=== PATIENT | male | born 2005 | race Caucasian/White ===

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

== ENCOUNTER 2025-09-02 16:50 | Emergency (ER) | payer OTHER, SELFPAY ==
[2025-09-02 16:51] VITALS: BP 163/101; PULSE 73; RESP 16; TEMP 36.8; O2SAT 99; BMI 32.3
--- NOTE | 2025-09-02 17:04 | ED.VIS.LOWEX ---
HPI History of Present Illness HPI Narrative: 21-diuw-nzy-year-old male no [facility] past medical history other prior metatarsal fracture of his foot in the past. Today's playing basketball went to stop and felt a pop in his right foot. Denies any ankle or knee pain. Initially thought he sprained it but has had more pain with walking. So he came in to have evaluated. This occurred around 9 AM this morning. He has never had any surgery to his foot. Chief Complaint: Lower Extremity Injury Informant: patient Occured/Mechanism Mechanism/Context: Yes injury and Yes blunt trauma Onset/Context/Timing Onset: Today and Hours Context: Sudden Onset Timing: Continuous Quality of Pain: Sharp Current Severity: Mild Maximum Severity: Moderate Narrative Narrative: 20-year-old male injured his right foot playing basketball today. Has had a prior fourth metatarsal fracture. No prior surgery. Denies any other complaints. Prior similar symptoms: Yes Recent Illness/Hospitalization: No PFSH PFSH Medical History Ankle injuries Home Medications ?Medication ?Instructions ?Recorded ?Last Taken ?Type NK 11/30/17 Unknown History Allergy/AdvReac Type Severity Reaction Status Date / Time No Known Allergies Allergy Verified 09/02/25 16:52 Family History Other Asthma Diabetes Social History Smoking Status: Never smoker alcohol intake: never ROS ROS ED ROS Narrative Denies recent illness. Constitutional Constitutional ED: Denies chills or fever(s) Eyes Eyes: Denies blurry vision ENT ENT ED: Denies ear pain Cardiovascular Cardiovascular: Denies chest pain Respiratory/Chest Respiratory/Chest: Denies cough or dyspnea Gastrointestinal Gastrointestinal: Denies abdominal pain Genitourinary Genitourinary ED: Denies dysuria or hematuria Musculoskeletal Musculoskeletal: Denies arthralgias Integumentary Denies abscess Neurologic Neurologic: Denies headache(s) Psychiatric Psychiatric: Denies anxiety Endocrine Endocrinology: Denies polydipsia Hematologic/Lymphatic Hematologic/Lymphatic: Denies easy bleeding, easy bruising or lymphadenopathy Allergic/Immunologic Allergic/Immunologic ED: Denies mouth swelling, tongue swelling or urticaria EXAM Physical Exam Narrative Exam Narrative: 20-year-old male no acute distress vital signs stable afebrile. Companied by his dad. H EENT exam pupils round react light. Lungs clear to auscultation. Heart regular rhythm no murmur. Abdomen soft nontender. Moving all 4 extremities. Neurovascularly intact. No edema. Right hip, knee and ankle nontender nonswollen normal range of motion. Normal DP pulse. Achilles tendon intact. Right foot no swelling. Able to wiggle his toes. Normal touch sensation and cap refill. Tenderness along the distal end of the fifth or small toe metatarsal. Patient is awake alert. Answering questions following commands. Back nontender. Const Vital Signs: 09/02/25 16:51 Temperature 98.3 F Temperature Source Oral Pulse Rate 73 Respiratory Rate 16 Blood Pressure 163/101 H Blood Pressure Mean 121 Pulse Ox 99 Oxygen Delivery Method Room Air MDM MDM MDM Narrative Medical decision making narrative: 20-year-old male right foot injury playing basketball x-ray being obtained he did not need anything for pain. Repeat exam around 5:27 PM no significant change. We went over his x-rays. Patiently placed in a walking boot. He wanted to follow-up with [facility]. History & Record Review Discussion w/independent historian: Patient and Family Additional record(s) reviewed:: Prior outpatient record, Prior ED visit and Prior labs Radiography Diagnostic Testing: Right foot x-ray, 3 views, interpreted by myself shows fracture of the proximal end of the right small toe or fifth metatarsal. I did go over the x-rays with the patient and his father. Discharge Plan Triage Chief Complaint: Lower Extremity Injury ED Provider: Spike Ivan Dx/Rx/DC Orders Clinical Impression: Closed nondisplaced fracture of fifth right metatarsal bone Instructions: ED Fracture, Foot Prescriptions: No Action NK Primary Care Provider: Benson Estrada Referrals: Darian Jones MD [Med Staff - Active Staff, Orthopedics] - As soon as possible Benson Estrada MD [Primary Care Provider, Family Practice] Robinson Boyer DPM [Med Staff - Active Staff, Podiatry] - As soon as possible Héctor Rogers DO [Med Staff - Active Staff, Orthopedics] - As soon as possible Activity Restrictions/Additional Instructions: You have a break or fracture of the small toe metatarsal on the proximal third. Ice and elevate. Motrin for pain and swelling Tylenol for pain. Either no weightbearing or you can use the walking boot. Do not walk on your bare feet at this time. Call and follow-up either with Dr. Rogers of [facility], Dr. Jones of [facility] or Dr. Boyer of the [facility]. Print Language: Emirati Disposition Disposition: Home, Self Care
--- NOTE | 2025-09-02 17:05 | RAD_ITS ---
PROCEDURE: FOOT MIN 3 VIEWS 09/02/2025 REASON FOR EXAM: FOOT PAIN. INJURED RIGHT FOOT. PRIOR FX TECHNIQUE: Procedure Code: RADFO Modality: DX Procedure: FOOT MIN 3 VIEWS Laterality: Right COMPARISON: 03/08/2019 right foot radiographs FINDINGS: Bones: Nondisplaced fracture involving mid right 5th toe metatarsal. Joints: Normal alignment. Soft tissues: Soft tissues are unremarkable. RAD/Foot min 3 Views IMPRESSION: Nondisplaced fracture involving mid right 5th toe metatarsal. Reading Location: [facility]
--- OUTSIDE RECORDS SUMMARY | 2025-09-02 17:13 | XMS RPT_ITS | CCD ---
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 Name Role Phone Kelly Fuchs Attending Unavail able Benson Estrada Referring Unavailable Benson Estrada Primary Care Unavailable None, None Primary Care Provider Unavailabl e NONE, NONE Primary Care Unavailable MARIA EUGENIA REVELES Attending Unavailable NONE, NONE Primary Care Unavailable NONE, NONE Primary Care Unavailable Medications Completed/Discontinued Medications Medication Drug Class(es) Dates Sig (Normalized) Sig (Original) calcium chloride 0.0014 meq/ml / potassium chloride 0.004 meq/ml / sodium chloride 0.103 meq/ml / sodium lactate 0.028 meq/ml injectable solution (1 source) Start: 06-04-2025 End: 06-04-2025 1,000 mL, IntraVENous, at 495.9 mL/hr, Administer over 121 Minutes, ONCE, On 06/04/25 at 2015, For 1 dose 50 ml magnesium sulfate 40 mg/ml injection (1 source) Start: 06-04-2025 End: 06-04-2025 2,000 mg, IntraVENous, at 50 mL/hr, Administer over 1 Hours, ONCE, On 06/04/25 at 2030, For 1 dose, Recommended infusion rate of 1 gram/hour. Problems Active Problems Problem Classification Problem Date Documented Da te Episodic/Chronic Fluid and electrolyte disorders (4 sources) Dehydration; Translations: [Dehydration] Onset: 06-04-2025 05-14-2021 Episodic Malaise and fatigue (1 source) Other fatigue; Translations: [Other fatigue] Onset: 06-08-2025 Episodic Other injuries and conditions due to external causes (1 source) Heat exhaustion; Translations: [Heat exhaustion, unspecified, initial encounter] 06-04-2025 Episodic Other injuries and conditions due to external causes (1 source) Heat exhaustion, unspecified, initial encounter; Translations: [Heat exhaustion, unspecified, initial encounter] Onset: 06-04-2025 Episodic Superficial injury; contusion (2 sources) Contusion of knee; Translations: [Contusion of unspecified knee, initial encounter] 11-13-2020 Episodic Past or Other Problems Problem Classification Problem Date Documented Da te Episodic/Chronic Other screening for suspected conditions (not mental disorders or infectious disease) (5 sources) Creatinine level - finding; Translations: [Other specified abnormal findings of blood chemistry] Onset: 06-23-2024 05-14-2021 Episodic Results Test Name Value Interpretation Reference Range Facility CBC WITH DIFFERENTIALon ABS BASOPHILS 0.0 thou/mm3 Normal 0.0-0.1 [facility] Comment on above: Performed By: #### C NORMA, FERR #### [facility] [employer] [address] [place] [address] ABS EOSINOPHILS 0.1 thou/mm3 Normal 0.0-0.4 [facility] Comment on above: Performed By: #### C NORMA, FERR #### [facility] [address] [place] [address] ABS IMMATURE GRANS (IG) 0.11 thou/mm3 High 0.00-0.07 [facility] Comment on above: Performed By: #### Charity GREEN, FERR #### [facility] [address] [address] ABS LYMPHOCYTES 2.2 thou/mm3 Normal 1.0-4.8 [facility] Comment on above: Performed By: #### C NORMA, FERR #### [facility] [address] [place] [address] ABS MONOCYTES 0.6 thou/mm3 Normal 0.4-1.3 [facility] Comment on above: Performed By: #### C NORMA, FERR #### [facility] [address] [place] [address] ABS NEUTROPHILS 4.4 thou/mm3 Normal 1.8-7.7 [facility] Comment on above: Performed By: #### C NORMA, FERR #### [facility] [employer] [facility] [address] [place] [address] Basophils/100 WBC (Bld) 0.4 % Normal [facility] Comment on above: Performed By: #### C BCWD, FERR #### [facility] [address] [place] [address] Eosinophils/100 WBC (Bld) 0.7 % Normal [facility] Comment on above: Performed By: #### C BCWD, FERR #### [facility] [address] [place] [address] Erythrocyte distribution width (RBC) [Ratio] 12.3 % Normal 11.5-14.5 [facility] Comment on above: Performed By: #### C BCWD, FERR #### [facility] [address] [place] [address] Hematocrit (Bld) [Volume fraction] 51.3 % Normal 42.0-52.0 [facility] Comment on above: Performed By: #### C BCWD, FERR #### [address] [address] Hemoglobin (Bld) [Mass/Vol] 17.5 g/dL Normal 14.0-18.0 [facility] Comment on above: Performed By: #### C BCWD, FERR #### [address] [address] IMMATURE GRANS (IG) 1.5 % Normal [facility] Comment on above: Performed By: #### C BCWD, FERR #### [address] [address] Lymphocytes/100 WBC (Bld) 29.1 % Normal [facility] Comment on above: Performed By: #### C BCWD, FERR #### [facility] [address] [place] [address] MCH (RBC) [Entitic mass] 30.2 pg Normal 26.0-33.0 [facility] Comment on above: Performed By: #### C BCWD, FERR #### [facility] [address] [place] [address] MCHC (RBC) [Mass/Vol] 34.1 g/dL Normal 32.2-35.5 [facility] Comment on above: Performed By: #### C BCWD, FERR #### [facility] [address] [place] [address] MCV (RBC) [Entitic vol] 88.6 fL Normal 80.0-94.0 [facility] Comment on above: Performed By: #### C BCWD, FERR #### [facility] [address] [place] [address] Monocytes/100 WBC (Bld) 8.2 % Normal [facility] Comment on above: Performed By: #### C BCWD, FERR #### [facility] [address] [place] [address] Neutrophils/100 WBC (Bld) 60.1 % Normal [facility] Comment on above: Performed By: #### C BCWD, FERR #### [address] [address] NRBC 0 /100 wbc Normal [facility] Comment on above: Performed By: #### C BCENRICO, FERR #### [facility] [employer] [address] [address] PLATELET 248 thou/mm3 Normal 130-400 [facility] Comment on above: Performed By: #### C BCWD, FERR #### [address] [address] Platelet mean volume (Bld) [Entitic vol] 11.7 fL Normal 9.4-12.4 [facility] Comment on above: Performed By: #### C BCENRICO, FERR #### [address] [address] RBC 5.79 mill/mm3 Normal 4.70-6.10 [facility] Comment on above: Performed By: #### C BCWD, FERR #### [facility] [address] [place] [address] RDW-SD 39.9 fL Normal 35.0-45.0 [facility] Comment on above: Performed By: #### C BCWD, FERR #### [facility] [address] [place] [address] WBC 7.4 thou/mm3 Normal 4.8-10.8 [facility] Comment on above: Performed By: #### C BCWD, FERR #### [facility] [address] [place] [address] FERRITINon 06-08-2025 Ferritin [Mass/Vol] 297 ng/mL Normal 30-400 [facility] Comment on above: Performed By: #### C BCENRICO, FERR #### [place] [address] ANION GAPon 06-04-2025 Anion gap [Moles/Vol] 14.0 mmol/L Normal 8.0-16.0 [facility] Comment on above: Result Comment: ANIO N GAP = Sodium -(Chloride + CO2) Performed By: #### C BCWD, CK, OSMOL, EGFR1, CMPX, ANION #### [place] [address] Anion Gapon 06-04-2025 Anion gap [Moles/Vol] 14.0 mmol/L 8.0 - 16.0 meq/L [facility] Comment on above: ANION GAP = Sodium - (Chloride + CO2) Performed at [facility] [address] [place] [address] CALCULATED OSMOLALITYon 05-07 Osmolality [Osmolality] 273.2 mosm/kg Low 275.0-300.0 [facility] Comment on above: Performed By: #### C BCWD, CK, OSMOL, EGFR1, CMPX, ANION #### [place] [address] CBC WITH DIFFERENTIALon 05-07 ABS BASOPHILS 0.0 thou/mm3 Normal 0.0-0.1 [facility] Comment on above: Performed By: #### C BCWD, CK, OSMOL, EGFR1, CMPX, ANION #### [facility] [address] [place] [address] ABS EOSINOPHILS 0.0 thou/mm3 Normal 0.0-0.4 [facility] Comment on above: Performed By: #### C BCWD, CK, OSMOL, EGFR1, CMPX, ANION #### [facility] [address] [place] [address] ABS IMMATURE GRANS (IG) 0.21 thou/mm3 High 0.00-0.07 [facility] Comment on above: Performed By: #### C BCWD, CK, OSMOL, EGFR1, CMPX, ANION #### [place] [address] ABS LYMPHOCYTES 1.3 thou/mm3 Normal 1.0-4.8 [facility] Comment on above: Performed By: #### C BCWD, CK, OSMOL, EGFR1, CMPX, ANION #### [place] [address] ABS MONOCYTES 0.8 thou/mm3 Normal 0.4-1.3 [facility] Comment on above: Performed By: #### C BCWD, CK, OSMOL, EGFR1, CMPX, ANION #### [place] [address] ABS NEUTROPHILS 12.7 thou/mm3 High 1.8-7.7 [facility] Comment on above: Performed By: #### C BCWD, CK, OSMOL, EGFR1, CMPX, ANION #### [place] [address] Basophils/100 WBC (Bld) 0.3 % Normal [facility] Comment on above: Performed By: #### C BCWD, CK, OSMOL, EGFR1, CMPX, ANION #### [place] [address] Eosinophils/100 WBC (Bld) 0.1 % Normal [facility] Comment on above: Performed By: #### C BCWD, CK, OSMOL, EGFR1, CMPX, ANION #### [place] [address] Erythrocyte distribution width (RBC) [Ratio] 12.2 % Normal 11.5-14.5 [facility] Comment on above: Performed By: #### C BCWD, CK, OSMOL, EGFR1, CMPX, ANION #### [place] [address] Hematocrit (Bld) [Volume fraction] 50.1 % Normal 42.0-52.0 [facility] Comment on above: Performed By: #### C BCWD, CK, OSMOL, EGFR1, CMPX, ANION #### [address] [address] Hemoglobin (Bld) [Mass/Vol] 17.2 g/dL Normal 14.0-18.0 [facility] Comment on above: Performed By: #### C BCWD, CK, OSMOL, EGFR1, CMPX, ANION #### [address] [address] IMMATURE GRANS (IG) 1.4 % Normal [facility] Comment on above: Performed By: #### C BCWD, CK, OSMOL, EGFR1, CMPX, ANION #### [place] [address] Lymphocytes/100 WBC (Bld) 8.6 % Normal [facility] Comment on above: Performed By: #### C BCWD, CK, OSMOL, EGFR1, CMPX, ANION #### [place] [address] MCH (RBC) [Entitic mass] 30.3 pg Normal 26.0-33.0 [facility] Comment on above: Performed By: #### C BCWD, CK, OSMOL, EGFR1, CMPX, ANION #### [place] [address] MCHC (RBC) [Mass/Vol] 34.3 g/dL Normal 32.2-35.5 [facility] Comment on above: Performed By: #### C BCWD, CK, OSMOL, EGFR1, CMPX, ANION #### [address] [address] MCV (RBC) [Entitic vol] 88.2 fL Normal 80.0-94.0 [facility] Comment on above: Performed By: #### C BCWD, CK, OSMOL, EGFR1, CMPX, ANION #### [place] [address] Monocytes/100 WBC (Bld) 5.1 % Normal [facility] Comment on above: Performed By: #### C BCWD, CK, OSMOL, EGFR1, CMPX, ANION #### [place] [address] Neutrophils/100 WBC (Bld) 84.5 % Normal [facility] Comment on above: Performed By: #### C BCWD, CK, OSMOL, EGFR1, CMPX, ANION #### [place] [address] NRBC 0 /100 wbc Normal [facility] Comment on above: Performed By: #### C BCWD, CK, OSMOL, EGFR1, CMPX, ANION #### [place] [address] PLATELET 228 thou/mm3 Normal 130-400 [facility] Comment on above: Performed By: #### C BCWD, CK, OSMOL, EGFR1, CMPX, ANION #### [place] [address] Platelet mean volume (Bld) [Entitic vol] 10.6 fL Normal 9.4-12.4 [facility] Comment on above: Performed By: #### C BCWD, CK, OSMOL, EGFR1, CMPX, ANION #### [facility] [employer] [place] [address] RBC 5.68 mill/mm3 Normal 4.70-6.10 [facility] Comment on above: Performed By: #### C BCWD, CK, OSMOL, EGFR1, CMPX, ANION #### [place] [address] RDW-SD 39.5 fL Normal 35.0-45.0 [facility] Comment on above: Performed By: #### C BCWD, CK, OSMOL, EGFR1, CMPX, ANION #### [place] [address] WBC 15.0 thou/mm3 High 4.8-10.8 [facility] Comment on above: Performed By: #### C BCWD, CK, OSMOL, EGFR1, CMPX, ANION #### [place] [address] CBC with Auto Differentialon 06-04-2025 Basophils (Bld) [#/Vol] 0.0 10*3/uL [facility] Eosinophils Absolute 0.0 [facility] Erythrocyte distribution width (RBC) [Entitic vol] 39.5 fL 35.0 - 45.0 fL [facility] Immature granulocytes (Bld) [#/Vol] 0.21 10*3/uL High [facility] Immature granulocytes/100 WBC (Bld) 1.4 % [facility] Interpretation and review of laboratory results Abnormal [facility] Lymphocytes Absolute 1.3 [facility] Monocytes Absolute 0.8 [facility] Neutrophils Absolute 12.7 High [facility] Nucleated RBC/100 WBC (Bld) [Ratio] 0 % /100 wbc [facility] Comment on above: Performed at [facility] [address] [place] [address] Platelets (Bld) [#/Vol] 228 10*3/uL [facility] RBC (Bld) [#/Vol] 5.68 10*6/uL [facility] WBC (Bld) [#/Vol] 15.0 10*3/uL High [facility] CKon 06-04-2025 CK [Catalytic activity/Vol] 392 U/L High 39-308 [facility] Comment on above: Performed at [facility] [employer] [facility] [address] [place] [address] Performed By: #### C BCWD, CK, OSMOL, EGFR1, CMPX, ANION #### [facility] [address] [place] [address] CK [Catalytic activity/Vol]o n 06-04-2025 Interpretation and review of laboratory results Abnormal [facility] COMP. METABOLIC PANELon 05-07 Chloride [Moles/Vol] 97 mmol/L Low 98-111 [facility] Comment on above: Performed By: #### C BCWD, CK, OSMOL, EGFR1, CMPX, ANION #### [facility] [address] [place] [address] Sodium [Moles/Vol] 134 mmol/L Low 135-145 [facility] Comment on above: Performed By: #### C BCWD, CK, OSMOL, EGFR1, CMPX, ANION #### [facility] [address] [address] Calcium [Mass/Vol] 10.1 mg/dL Normal 8.5-10.5 [facility] Comment on above: Performed By: #### C BCWD, CK, OSMOL, EGFR1, CMPX, ANION #### [address] [address] CO2 [Moles/Vol] 23 mmol/L Normal 22-29 [facility] Comment on above: Performed By: #### C BCWD, CK, OSMOL, EGFR1, CMPX, ANION #### [address] [address] Creatinine [Mass/Vol] 1.5 mg/dL High 0.7-1.2 [facility] Comment on above: Performed By: #### C BCWD, CK, OSMOL, EGFR1, CMPX, ANION #### [address] [address] Glucose [Mass/Vol] 121 mg/dL High 74-109 [facility] Comment on above: Performed By: #### C BCWD, CK, OSMOL, EGFR1, CMPX, ANION #### [address] [address] Protein [Mass/Vol] 7.2 g/dL Normal 6.4-8.3 [facility] Comment on above: Performed By: #### C BCWD, CK, OSMOL, EGFR1, CMPX, ANION #### [address] [address] Urea nitrogen [Mass/Vol] 23 mg/dL Normal 8-23 [facility] Comment on above: Performed By: #### C BCWD, CK, OSMOL, EGFR1, CMPX, ANION #### [address] [address] Albumin [Mass/Vol] 4.8 g/dL Normal 3.4-4.9 [facility] Comment on above: Performed By: #### C BCWD, CK, OSMOL, EGFR1, CMPX, ANION #### [address] [address] ALP [Catalytic activity/Vol] 94 U/L Normal 40-129 [facility] Comment on above: Performed By: #### C BCWD, CK, OSMOL, EGFR1, CMPX, ANION #### [address] [address] ALT [Catalytic activity/Vol] 59 U/L High 10-50 [facility] Comment on above: Performed By: #### C BCWD, CK, OSMOL, EGFR1, CMPX, ANION #### [address] [address] AST [Catalytic activity/Vol] 39 U/L Normal 10-50 [facility] Comment on above: Performed By: #### C BCWD, CK, OSMOL, EGFR1, CMPX, ANION #### [address] [address] Bilirubin [Mass/Vol] 1.0 mg/dL Normal 0.3-1.2 [facility] Comment on above: Performed By: #### C BCWD, CK, OSMOL, EGFR1, CMPX, ANION #### [address] [address] POTASSIUM WITH REFLEX MG 4.2 meq/L Normal 3.5-5.2 [facility] Comment on above: Result Comment: Low level specimen hemolysis is present as indicated by the interference index on the Elsy analyzer. ??The reported K+ level may be falsely increased. If clinically warranted, recollection of the specimen is suggested. Performed By: #### C BCWD, CK, OSMOL, EGFR1, CMPX, ANION #### [address] [address] Comprehensive metabolic 2000 panelon 06-04-2025 Albumin BCG dye [Mass/Vol] 4.8 g/dL 3.4 - 4.9 g/dL [facility] ALP [Catalytic activity/Vol] 94 U/L 40 - 129 U/L [facility] ALT No additional P-5'-P [Catalytic activity/Vol] 59 U/L High 10 - 50 U/L [facility] Comment on above: Performed at [facility] [address] [place] [address] AST [Catalytic activity/Vol] 39 U/L 10 - 50 U/L [facility] Bilirubin [Mass/Vol] 1.0 mg/dL 0.3 - 1 .2 mg/dL [facility] Calcium [Mass/Vol] 10.1 mg/dL 8.5 - 10. 5 mg/dL [facility] CO2 [Moles/Vol] 23 mmol/L 22 - 29 meq/L [facility] Creatinine [Mass/Vol] 1.5 mg/dL High 0.7 - 1.2 mg/dL [facility] Glucose [Mass/Vol] 121 mg/dL High 74 - 109 mg/dL [facility] Potassium [Moles/Vol] 4.2 mmol/L 3.5 - 5.2 meq/L [facility] Comment on above: Low level specimen h emolysis is present as indicated by the interference index on the Elsy analyzer. The reported K+ level may be falsely increased. If clinically warranted, recollection of the specimen is suggested. Protein [Mass/Vol] 7.2 g/dL 6.4 - 8.3 g/dL [facility] Urea nitrogen [Mass/Vol] 23 mg/dL 8 - 23 mg/dL [facility] EKG 12-LEADon 06-04-2025 EKG 12-LEAD 83 83 174 86 344 404 44 58 48 Normal sinus rhythm Normal ECG No previous ECGs available Confirmed by DAMIAN SMITH MD ([id number]) on 06/04/2025 9:01:04 PM [email or web address]&Date= 04-06-2025&Time=19%3a15 %3a22%3a00&TestType=ECG &Site=3&OutputType=PDF& Ext=PDF Normal [facility] EKG EmergencyOrdered By: Martin Smith on 06-04-2025 Atrial Rate 83 BPM [facility] Work Phone: P [place] 44 degrees [facility] Work Phone: P-R Interval 174 ms [employer] Work Phone: Q-T Interval 344 ms [employer] Work Phone: QRS Duration 86 ms [employer] Work Phone: QTc Calculation (Bazett) 404 ms [employer] Work Phone: R [place] 58 degrees [employer] Work Phone: T [place] 48 degrees [employer] Work Phone: Ventricular Rate 83 BPM Richard [employer] Work Phone: [employer] Work Phone: EKG Emergencyon 06-04-2025 Normal sinus rhythm Normal ECG No previous ECGs available Confirmed by DAMIAN SMITH MD ([id number]) on 06/04/2025 9:01:04 PM WCCT STR MUSE Damian Smith MD - 06/04/2025 Normal sinus rhythm Normal ECG No previous ECGs available Confirmed by DAMIAN SMITH MD ([id number]) on 06/04/2025 9:01:04 PM [employer] GFR, ESTIMATEDon 06-04-2025 GFR/1.73 sq M.predicted MDRD (S/P/Bld) [Vol rate/Area] 67 mL/min/{1.73_m2} Normal >60 [employer] Comment on above: Pediatric calculator link [email or web address]://www.kidney.org/professionals/kdoqi/gfr_calculatorped Effective Jul 07, 2022 These results are not intended for use in patients <18 years of age. eGFR results are calculated without a race factor using the 2020 CKD-EPI equation. Careful clinical correlation is recommended, particularly when comparing to results calculated using previous equations. The CKD-EPI equation is less accurate in patients with extremes of muscle mass, extra-renal metabolism of creatinine, excessive creatine ingestion, or following therapy that affects renal tubular secretion. Performed at [facility] [address] [place] [address] Result Comment: Pedi atric calculator link [email or web address]://www.kidney.org/professionals/kdoqi/gfr_calculatorped Effective Jul 07, 2022 These results are not intended for use in patients <18 years of age. eGFR results are calculated without a race factor using the 2020 CKD-EPI equation. Careful clinical correlation is recommended, particularly when comparing to results calculated using previous equations. The CKD-EPI equation is less accurate in patients with extremes of muscle mass, extra-renal metabolism of creatinine, excessive creatine ingestion, or following therapy that affects renal tubular secretion. Performed By: #### C BCWD, CK, OSMOL, EGFR1, CMPX, ANION #### [facility] [employer] [address] [place] [address] No Panel Informationon 06-04 Interpretation and review of laboratory results Abnormal [facility] Osmolalityon 06-04-2025 Osmolality Calc [Osmolality] 273.2 Low [facility] Comment on above: Performed at [facility] [address] [place] [address] FERRITINon 06-21-2024 Ferritin [Mass/Vol] 517 ng/mL High 22-322 [facility] Comment on above: Performed By: #### C BCWD, CK, OSMOL, EGFR1, CMPX, ANION #### [place] [address] IRON AND TIBCon 06-21-2024 Iron [Mass/Vol] 92 ug/dL Normal 65-195 [facility] Comment on above: Performed By: #### T RIK NEWSOME FEIBC #### [place] [address] IRON BINDING CAPACITY 206 ug/dL Normal 171-450 [facility] Comment on above: Performed By: #### T RIK NEWSOME FEIBC #### [place] [id number] TSH W/ REFLEX FT4on 06-21-20 24 TSH THIRD GENERATION 2.420 uIU/mL Normal 0.400-4.200 [facility] Comment on above: Performed By: #### C BCWD, CK, OSMOL, EGFR1, CMPX, ANION #### [facility] [address] [place] [address] Office Visit Reporton 2023 Office Visit Report [facility] [address] [place] [address] OFFICE VISIT Date of Service: 02/20/24 MR#: [id number] Acct: [id number] Patient: MICHEL GUERRIER Rep #: [id number] 22 : 2005 Provider: BONIFACIO Valdez Age/Sex: 19/M Location: [facility] Status: Signed Intake Vital Signs 05/14/21 19:17 Height 6 ft 2 in Intake Visit Reasons: PE NON DOT DRUG SCREEN/ GENRAL RENT-ALL Allergies No Known Allergies Allergy (Verified 05/14/21 19:17) Office Procedures [facility] Billing Sheet Testing Breath Alcohol Test in ED (oncology rn fee charged): No Breath Alcohol in [facility]: No Breath Alcohol Test Pre-Employment: No Chest X-Ray (interpreted by radiologist): No DOT Drug Screen: No DOT Physical Exam: No DOT Pre-Employment Breath Alcohol: No DOT Pre-Employment Drug Screen: No DOT Reasonable Suspicion: No Drug Screen Collection Only: No Drug Test Performed by another entity: No ECG: No ED environmental auditor Fee: No Employer Ordered Physical: No Flu Test: No Functional Capacity Evaluation: No Glucose (Finger): No Hair Collection Drug Screen: No Hair Collection Only: No Hair Testing Extended (Opiates): No HCG: No Hearing (Audiogram) Test: No Non-DOT Breath Alcohol Test in ED: No Non-DOT Random Drug Screen: No Non-DOT Reasonable Suspicion: No On Site Service Call (min of 1 hr plus cost of drug screen): No Other DOT Drug Screen: No Other Non-DOT Drug Screen: No Post-Accident DOT Drug Screen (in ED oncology rn fee charged): No Post-Accident DOT Drug Screen in [facility]: No Post-Accident Non-DOT Breath Alcohol Test: No Post-Accident NON-DOT Drug Screen (oncology rn fee charged in ED): No Post-Accident NON-DOT Drug Screen in ED (oncology rn fee charged): No Post-Accident NON-DOT Drug Screen in [facility]: No Pre-Employment Drug Screen [facility]: No Pre-Employment Drug Screen: Yes Pre-Employment PE: No [employer] DOT (yearly plus drug testing fee): No [employer] [facility] Non-DOT (yearly plus drug testing fee): No Respirator Clearance (form only): No Respirator Fit Testing: No RSV/Flu Linda: No Saliva Drug Screen: No Second Drug Screen: No Strep Linda: No TB Test: No Tdap (over age 7): No Titmus Screening: No Vision Test: No Stress Test (conducted interpreted by a tool repairer): No Occquant-Quantiferon: No 05/25/24 1604 A> Date Kelly Kathleen Signature: Date (if applicable) CC: Normal [facility] Hemoglobin S Solubility test Ql (Bld)Ordered By: Bay Estrada on 05-05-2023 Hemoglobin S Ql (Bld) Negative Negative [facility] Comment on above: Since a variety of c onditions and other abnormalhemoglobins in addition to Hemoglobin S may give false-positive results, positive Hemoglobin Solubility testsshould be confirmed by hemoglobin fractionation testing.Performed at: [address] [id number] Director: Alec Sanchez PhD, Phone: [phone] Vital Signs Date Time Vital Sign Value Performing Clinician Noy fonseca 06-04-2025 22:00-0400 Diastolic blood pressure 76 mm[Hg] Maria Eugenia Reveles DO Work Phone: [facility] [employer] 06-04-2025 22:00-0400 Heart rate 71 /min Maria Eugenia Reveles DO Work Phone: [facility] [employer] 06-04-2025 22:00-0400 Respiratory rate 10 /min Maria Eugenia Reveles DO Work Phone: [facility] 06-04-2025 22:00-0400 SaO2% (BldA) [Mass fraction] 99 % Maria Eugenia Reveles DO Work Phone: [employer] 06-04-2025 22:00-0400 Systolic blood pressure 145 mm[Hg] Maria Eugenia Reveles DO Work Phone: [employer] 06-04-2025 19:56-0400 Body temperature 98.49 [degF] Maria Eugenia Reveles DO Work Phone: [employer] 06-04-2025 19:13-0400 Body height 188 cm Maria Eugenia Reveles DO Work Phone: [facility] [employer] 06-04-2025 19:13-0400 Body mass index (BMI) [Ratio] 36.59 kg/m2 Maria Eugenia Reveles DO Work Phone: [employer] 06-04-2025 19:13-0400 Body weight 129.28 kg Maria Eugenia Reveles DO Work Phone: [facility] [employer] Encounters Encounter Date Encounter Type Care Provider Facility Start: 06-08-2025 End: 06-08-2025 ambulatory NONE NONE [facility] Start: 06-04-2025 End: 06-04-2025 Emergency department patient visit Maria Eugenia Reveles DO Work Phone: [facility] Comment on above: Heat exhaustion, ini tial encounter (Primary Dx); Dehydration; Elevated serum creatinine Start: 06-21-2024 End: 06-21-2024 ambulatory NONE NONE [facility] Start: 02-20-2024 End: 02-20-2024 ambulatory Kelly VALDOVINOS Facility[facility] Start: 05-05-2023 End: 05-05-2023 ambulatory [facility] Work Phone: Start: 05-05-2023 End: 05-05-2023 Patient encounter procedure [facility] Work Phone: Start: 06-28-2022 End: 06-28-2022 ambulatory [facility] Work Phone: Start: 06-28-2022 End: 06-28-2022 Patient encounter procedure [facility] [place] Procedures Date Procedure Procedure Detail Performing Clinician Start: 06-04-2025 Anion gap [Moles/Vol] J tina Richey MD Work Phone: Start: 06-04-2025 Creatine kinase total J tina Richey MD Work Phone: Start: 06-04-2025 GLOMERULAR FILTRATIO N RATE, ESTIMATED Sreedhar Richey MD Work Phone: Start: 06-04-2025 Ecg routine ecg w/le ast 12 lds w/i&r Maria Eugenia Reveles DO Work Phone: Start: 06-28-2022 MRI of joint of lowe r extremity Plan of Treatment Date Care Activity Detail Author Start: 05-11-2027 DTaP/Tdap/Td vaccine (7 - Td or Tdap) DTaP/Tdap/Td vaccine (7 - Td or Tdap) [facility] Start: 05-05-2025 Influenza vaccination Flu vaccine (#1) [facility] Start: 06-05-2024 COVID-19 Vaccine ( season) COVID-19 Vaccine ( season) [facility] Start: 2022 Hepatitis C screening Hepatitis C screen [facility] Start: 2020 Meningococcal B vaccine (1 of 2 - Standard) Meningococcal B vaccine (1 of 2 - Standard) [facility] Start: 2019 HIV screening HIV screen [facility] Start: 2019 HPV vaccine (1 - Male 3-dose series) HPV vaccine (1 - Male 3-dose series) [facility] Start: 2017 Varicella vaccine (1 of 2 - 13+ 2-dose series) Varicella vaccine (1 of 2 - 13+ 2-dose series) [facility] Start: 2016 Depression Screen Depression Screen [facility] Payers Date Payer Category Payer Unknown [id number] 2024 Unknown [id number] 2024 Self-pay [id number] 2004 Unknown [id number] [id number] 2004 Unknown [id number] Unknown [employer]/[facility] [place] [id number] Unknown [employer] 0 [id number] Unknown [facility] [place] PACKAGE PLAN . [id number] Unknown [id number] Social History Date Type Detail Facility [facility]: [facility] Start: 11-12-2020 None [facility] Start: 11-12-2020 With Family [facility] Start: 2004 Sex Assigned At Male [facility] Start: 06-04-2025 Tobacco smoking stat [facility] Never smoked tobacco [facility] Start: 06-04-2025 Tobacco use and exposure Smokeless tobacco non-user [facility] Start: 06-04-2025 Alcoholic beverage intake Ex-drinker (finding) [facility] Start: 06-04-2025 History of Social function [facility] Start: 06-04-2025 Tobacco use panel [facility] Start: 06-17-2024 Sex Male (finding) [facility] Start: 06-21-2024 Gender identity Identifies as male gender (finding) [facility] Hospital Discharge instructions 06-04-2025 Discharge InstructionsAttachments Note Date & Type Note Facility 06-04-2025 Hospital Discharg e instructions Maria Eugenia Reveles DO - 06/04/2025 9:39 PM EDT Follow-up with Dr. Saunders at [facility] for clearance to return to sports and repeat blood work. You will need your BUN and creatinine rechecked as these were elevated likely from dehydration on today's labs. Drink plenty of fluids. Drink 6-8--- 20 ounce bottles of water a day. While exercising drink an additional bottle of sports drink. Drink plenty of water before, during, and after you are active. This is very important when it is hot out and when you do intense exercise. The following attachments cannot be sent through Care Everywhere.Oral Rehydration (Ku[place]i)Heat Exhaustion ([place]i)documented in this encounter [facility] Evaluation note Note Date & Type Note Facility Evaluation note No assessment information availa [facility] Work Phone: Evaluation note Note Date & Type Note Facility Evaluation note Diagnosis Heat exhaustion, initial encounter- Primary Dehydration Elevated serum creatinine Other nonspecific findings on examination of blood documented in this encounter [facility] Chief Complaint and Reason for Visit Chief Complaint KNEE PAIN PROBABLE T ORN MCL Chief Complaint EORDER Summary Purpose Family History No Family History Records Found Advance Directives No Advanced Directives Records FoundNo Advanced Directives Records Found Additional Source Comments Goals (unrecognized section and content) Goals may be documented in a n alternate sectionGoals may be documented in an alternate section Care Teams (unrecognized sec tion and content) Team Status: Active Member Role Status Dates Dr. Bay Estrada MD Family Provider Active Dr. Bay Estrada MD Primary Care Provider Activ e Team Status: Inactive Member Role Status Dates Dr. 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 Start Date End Date None, None PCP - General 06/21/24 (unrecognized sect ion and content) No Status Records FoundNo Status Records Found INFORMATION SOURCE (unrecogn ized section and content) DATE CREATED AUTHOR 05/27/2024 [facility] DATE CREATED AUTHOR AUTHOR'S ORGANIZ ATION 06/10/2025 [facility] Reason for Visit (unrecogniz ed section and content) Reason Comments Heat Exposure Cramps Scheduled Active and Recently Administ ered Medications (unrecognized section and content) Medication Order 06/02/2025 06/03/2025 06/04/2025 lactated ringers bolus 1,000 mL (COMPLETED) 1,000 mL, IntraVENous, at 495.9 mL/hr, Administer over 121 Minutes, ONCE, On 06/04/25 at 2015, For 1 dose 1954 (New Bag - Prov ider: Easton Jacobsen RN)2221 (Stopped - Provider: Easton Jacobsen RN) magnesium sulfate 2000 mg in 50 mL IVPB premix (COMPLETED) 2,000 mg, IntraVENous, at 50 mL/hr, Administer over 1 Hours, ONCE, On 06/04/25 at 2029, For 1 dose, Recommended infusion rate of 1 gram/hour. 2036 (New Bag - Prov ider: Easton Jacobsen RN)2221 (Stopped - Provider: Easton Jacobsen RN) FOR RECORDS PERTAINING TO PATIENTS WHO ARE OR HAVE BEEN ENROLLED IN A CHEMICAL DEPENDENCY/SUBSTANCEABUSE PROGRAM, SOME INFORMATION MAY BE OMITTED. This clinical summary was aggregated from multiple sources. Caution should be exercised in using it in the provision of clinical care. This summary normalizes information from multiple sources, and as a consequence, information in this document may materially change the coding, format and clinical context of patient data. In addition, data may be omitted in some cases. CLINICAL DECISIONS SHOULD BE BASED ON THE PRIMARY CLINICAL RECORDS. [facility]. provides no warranty or guarantee of the accuracy or completeness of information in this document.
[2025-09-02 17:38] VITALS: BP 142/80; PULSE 93; RESP 16; TEMP 36.6; O2SAT 99
[2025-09-02 17:40] VITALS: BP 142/80; PULSE 93; RESP 16; TEMP 36.6; O2SAT 99
== END 2025-09-02 17:41 | disposition home or self-care (01) ==
PROVIDERS: Emergency Provider Emergency Medicine; PCP Family Medicine; Visit Provider Emergency Medicine
DX: S92.354A Nondisplaced fracture of fifth metatarsal bone, right foot, initial encounter for closed fracture (principal); Y93.67 Activity, basketball
CPT/HCPCS: 73630; 99283

== ENCOUNTER 2025-09-26 07:24 | Day surgery (SDC) | payer OTHER, SELFPAY ==
[2025-09-26] VITALS (10 sets, daily range): BP systolic 128–154; BP diastolic 61–90; PULSE 64–81; RESP 14–18; TEMP 36.1–36.7; O2SAT 98–100; BMI 35.5
--- OUTSIDE RECORDS SUMMARY | 2025-09-26 07:29 | XMS RPT_ITS | CCD ---
Author Organization [facility] Care Team Providers Care Angle Furnaceman Name Role Phone Kelly Fuchs Attending Unavail [...] DIFFERENTIALon ABS BASOPHILS 0.0 thou/mm3 Normal 0.0-0.1 [facility] Comment on above: Performed By: #### C NORMA, FERR #### [facility] [employer] [address] [place] [address] ABS EOSINOPHILS 0.1 thou/mm3 Normal 0.0-0.4 [facility] Comment on above: Performed By: #### C NORMA, FERR #### [facility] [employer] [address] [place] [address] ABS IMMATURE GRANS (IG) 0.11 thou/mm3 High 0.00-0.07 [facility] Comment on above: Performed By: #### Charity GREEN, FERR #### [facility] [employer] [address] [address] ABS LYMPHOCYTES 2.2 thou/mm3 Normal 1.0-4.8 [facility] Comment on above: Performed By: #### C NORMA, FERR #### [employer] [facility] [address] [place] [address] ABS MONOCYTES 0.6 thou/mm3 Normal 0.4-1.3 [facility] Comment on above: Performed By: #### C NORMA, FERR #### [employer] [facility] [address] [place] [address] ABS NEUTROPHILS 4.4 thou/mm3 Normal 1.8-7.7 [facility] Comment on above: Performed By: #### C NORMA, FERR #### [facility] [employer] [facility] [address] [place] [address] Basophils/100 WBC (Bld) 0.4 % Normal [facility] Comment on above: Performed By: #### C BCWD, FERR #### [facility] [address] [place] [address] Eosinophils/100 WBC (Bld) 0.7 % Normal [facility] Comment on above: Performed By: #### C BCWD, FERR #### [facility] [address] [place] [address] Erythrocyte distribution width (RBC) [Ratio] 12.3 % Normal 11.5-14.5 [facility] Comment on above: Performed By: #### C BCWD, FERR #### [facility] [address] [place] [address] Hematocrit (Bld) [Volume fraction] 51.3 % Normal 42.0-52.0 [facility] Comment on above: Performed By: #### C BCWD, FERR #### [address] [address] Hemoglobin (Bld) [Mass/Vol] 17.5 g/dL Normal 14.0-18.0 [facility] Comment on above: Performed By: #### C BCWD, FERR #### [address] [address] IMMATURE GRANS (IG) 1.5 % Normal [facility] Comment on above: Performed By: #### C BCWD, FERR #### [address] [address] Lymphocytes/100 WBC (Bld) 29.1 % Normal [facility] Comment on above: Performed By: #### C BCWD, FERR #### [facility] [address] [place] [address] MCH (RBC) [Entitic mass] 30.2 pg Normal 26.0-33.0 [facility] Comment on above: Performed By: #### C BCWD, FERR #### [facility] [address] [place] [address] MCHC (RBC) [Mass/Vol] 34.1 g/dL Normal 32.2-35.5 [facility] Comment on above: Performed By: #### C BCWD, FERR #### [facility] [address] [place] [address] MCV (RBC) [Entitic vol] 88.6 fL Normal 80.0-94.0 [facility] Comment on above: Performed By: #### C BCWD, FERR #### [facility] [address] [place] [address] Monocytes/100 WBC (Bld) 8.2 % Normal [facility] Comment on above: Performed By: #### C BCWD, FERR #### [facility] [address] [place] [address] Neutrophils/100 WBC (Bld) 60.1 % Normal [facility] Comment on above: Performed By: #### C BCWD, FERR #### [address] [address] NRBC 0 /100 wbc Normal [facility] Comment on above: Performed By: #### C BCENRICO, FERR #### [facility] [employer] [address] [address] PLATELET 248 thou/mm3 Normal 130-400 [facility] Comment on above: Performed By: #### C BCWD, FERR #### [address] [address] Platelet mean volume (Bld) [Entitic vol] 11.7 fL Normal 9.4-12.4 [facility] Comment on above: Performed By: #### C BCENRICO, FERR #### [address] [address] RBC 5.79 mill/mm3 Normal 4.70-6.10 [facility] Comment on above: Performed By: #### C BCWD, FERR #### [facility] [address] [place] [address] RDW-SD 39.9 fL Normal 35.0-45.0 [facility] Comment on above: Performed By: #### C BCWD, FERR #### [facility] [address] [place] [address]25 WBC 7.4 thou/mm3 Normal 4.8-10.8 [facility] Comment on above: Performed By: #### C BCWD, FERR #### [facility] [address] [place] [address] FERRITINon 06-08-2025 Ferritin [Mass/Vol] 297 ng/mL Normal 30-400 [facility] Comment on above: Performed By: #### C BCENRICO, FERR #### [place] [address] ANION GAPon 06-04-2025 Anion gap [Moles/Vol] 14.0 mmol/L Normal 8.0-16.0 [facility] Comment on above: Result Comment: ANIO N GAP = Sodium -(Chloride + CO2) Performed By: #### C BCWD, CK, OSMOL, EGFR1, CMPX, ANION #### [place] [address] Anion Gapon 06-04-2025 Anion gap [Moles/Vol] 14.0 mmol/L 8.0 - 16.0 meq/L [facility] Comment on above: ANION GAP = Sodium - (Chloride + CO2) Performed at [facility] [address] [place] [address] CALCULATED OSMOLALITYon 05-07 Osmolality [Osmolality] 273.2 mosm/kg Low 275.0-300.0 [facility] Comment on above: Performed By: #### C BCWD, CK, OSMOL, EGFR1, CMPX, ANION #### [place] [address] CBC WITH DIFFERENTIALon 05-07 ABS BASOPHILS 0.0 thou/mm3 Normal 0.0-0.1 [facility] Comment on above: Performed By: #### C BCWD, CK, OSMOL, EGFR1, CMPX, ANION #### [facility] [address] [place] [address] ABS EOSINOPHILS 0.0 thou/mm3 Normal 0.0-0.4 [facility] Comment on above: Performed By: #### C BCWD, CK, OSMOL, EGFR1, CMPX, ANION #### [facility] [address] [place] [address] ABS IMMATURE GRANS (IG) 0.21 thou/mm3 High 0.00-0.07 [facility] Comment on above: Performed By: #### C BCWD, CK, OSMOL, EGFR1, CMPX, ANION #### [place] [address] ABS LYMPHOCYTES 1.3 thou/mm3 Normal 1.0-4.8 [facility] Comment on above: Performed By: #### C BCWD, CK, OSMOL, EGFR1, CMPX, ANION #### [place] [address] ABS MONOCYTES 0.8 thou/mm3 Normal 0.4-1.3 [facility] Comment on above: Performed By: #### C BCWD, CK, OSMOL, EGFR1, CMPX, ANION #### [place] [address] ABS NEUTROPHILS 12.7 thou/mm3 High 1.8-7.7 [facility] Comment on above: Performed By: #### C BCWD, CK, OSMOL, EGFR1, CMPX, ANION #### [place] [address] Basophils/100 WBC (Bld) 0.3 % Normal [facility] Comment on above: Performed By: #### C BCWD, CK, OSMOL, EGFR1, CMPX, ANION #### [place] [address] Eosinophils/100 WBC (Bld) 0.1 % Normal [facility] Comment on above: Performed By: #### C BCWD, CK, OSMOL, EGFR1, CMPX, ANION #### [place] [address] Erythrocyte distribution width (RBC) [Ratio] 12.2 % Normal 11.5-14.5 [facility] Comment on above: Performed By: #### C BCWD, CK, OSMOL, EGFR1, CMPX, ANION #### [place] [address] Hematocrit (Bld) [Volume fraction] 50.1 % Normal 42.0-52.0 [facility] Comment on above: Performed By: #### C BCWD, CK, OSMOL, EGFR1, CMPX, ANION #### [address] [address] Hemoglobin (Bld) [Mass/Vol] 17.2 g/dL Normal 14.0-18.0 [facility] Comment on above: Performed By: #### C BCWD, CK, OSMOL, EGFR1, CMPX, ANION #### [address] [address] IMMATURE GRANS (IG) 1.4 % Normal [facility] Comment on above: Performed By: #### C BCWD, CK, OSMOL, EGFR1, CMPX, ANION #### [place] [address] Lymphocytes/100 WBC (Bld) 8.6 % Normal [facility] Comment on above: Performed By: #### C BCWD, CK, OSMOL, EGFR1, CMPX, ANION #### [place] [address] MCH (RBC) [Entitic mass] 30.3 pg Normal 26.0-33.0 [facility] Comment on above: Performed By: #### C BCWD, CK, OSMOL, EGFR1, CMPX, ANION #### [place] [address] MCHC (RBC) [Mass/Vol] 34.3 g/dL Normal 32.2-35.5 [facility] Comment on above: Performed By: #### C BCWD, CK, OSMOL, EGFR1, CMPX, ANION #### [address] [address] MCV (RBC) [Entitic vol] 88.2 fL Normal 80.0-94.0 [facility] Comment on above: Performed By: #### C BCWD, CK, OSMOL, EGFR1, CMPX, ANION #### [place] [address] Monocytes/100 WBC (Bld) 5.1 % Normal [facility] Comment on above: Performed By: #### C BCWD, CK, OSMOL, EGFR1, CMPX, ANION #### [place] [address] Neutrophils/100 WBC (Bld) 84.5 % Normal [facility] Comment on above: Performed By: #### C BCWD, CK, OSMOL, EGFR1, CMPX, ANION #### [place] [address] NRBC 0 /100 wbc Normal [facility] Comment on above: Performed By: #### C BCWD, CK, OSMOL, EGFR1, CMPX, ANION #### [place] [address] PLATELET 228 thou/mm3 Normal 130-400 [facility] Comment on above: Performed By: #### C BCWD, CK, OSMOL, EGFR1, CMPX, ANION #### [place] [address] Platelet mean volume (Bld) [Entitic vol] 10.6 fL Normal 9.4-12.4 [facility] Comment on above: Performed By: #### C BCWD, CK, OSMOL, EGFR1, CMPX, ANION #### [facility] [place] [address] RBC 5.68 mill/mm3 Normal 4.70-6.10 [facility] Comment on above: Performed By: #### C BCWD, CK, OSMOL, EGFR1, CMPX, ANION #### [place] [address] RDW-SD 39.5 fL Normal 35.0-45.0 [facility] Comment on above: Performed By: #### C BCWD, CK, OSMOL, EGFR1, CMPX, ANION #### [place] [address] WBC 15.0 thou/mm3 High 4.8-10.8 [facility] Comment on above: Performed By: #### C BCWD, CK, OSMOL, EGFR1, CMPX, ANION #### [place] [address] CBC with Auto Differentialon 06-04-2025 Basophils (Bld) [#/Vol] 0.0 10*3/uL [facility] Eosinophils Absolute 0.0 [facility] Erythrocyte distribution width (RBC) [Entitic vol] 39.5 fL 35.0 - 45.0 fL [facility] Immature granulocytes (Bld) [#/Vol] 0.21 10*3/uL High [facility] Immature granulocytes/100 WBC (Bld) 1.4 % [facility] Interpretation and review of laboratory results Abnormal [facility] Lymphocytes Absolute 1.3 [facility] Monocytes Absolute 0.8 [facility] Neutrophils Absolute 12.7 High [facility] Nucleated RBC/100 WBC (Bld) [Ratio] 0 % /100 wbc [facility] Comment on above: Performed at [facility] [address] [place] [address] Platelets (Bld) [#/Vol] 228 10*3/uL [facility] RBC (Bld) [#/Vol] 5.68 10*6/uL [facility] WBC (Bld) [#/Vol] 15.0 10*3/uL High [facility] CKon 06-04-2025 CK [Catalytic activity/Vol] 392 U/L High 39-308 [facility] Comment on above: Performed at [facility] [employer] [facility] Medical [facility] [address] [place] [address] Performed By: #### C BCWD, CK, OSMOL, EGFR1, CMPX, ANION #### [employer] [address] [place] [address] CK [Catalytic activity/Vol]o n 06-04-2025 Interpretation and review of laboratory results Abnormal [facility] COMP. METABOLIC PANELon 05-07 Chloride [Moles/Vol] 97 mmol/L Low 98-111 [facility] Comment on above: Performed By: #### C BCWD, CK, OSMOL, EGFR1, CMPX, ANION #### [employer] [address] [place] [address] Sodium [Moles/Vol] 134 mmol/L Low 135-145 [facility] Comment on above: Performed By: #### C BCWD, CK, OSMOL, EGFR1, CMPX, ANION #### [facility] [address] [address] Calcium [Mass/Vol] 10.1 mg/dL Normal 8.5-10.5 [facility] Comment on above: Performed By: #### C BCWD, CK, OSMOL, EGFR1, CMPX, ANION #### [address] [address] CO2 [Moles/Vol] 23 mmol/L Normal 22-29 [facility] Comment on above: Performed By: #### C BCWD, CK, OSMOL, EGFR1, CMPX, ANION #### [address] [address] Creatinine [Mass/Vol] 1.5 mg/dL High 0.7-1.2 [facility] Comment on above: Performed By: #### C BCWD, CK, OSMOL, EGFR1, CMPX, ANION #### [address] [address] Glucose [Mass/Vol] 121 mg/dL High 74-109 [facility] Comment on above: Performed By: #### C BCWD, CK, OSMOL, EGFR1, CMPX, ANION #### [address] [address] Protein [Mass/Vol] 7.2 g/dL Normal 6.4-8.3 [facility] Comment on above: Performed By: #### C BCWD, CK, OSMOL, EGFR1, CMPX, ANION #### [address] [address] Urea nitrogen [Mass/Vol] 23 mg/dL Normal 8-23 [facility] Comment on above: Performed By: #### C BCWD, CK, OSMOL, EGFR1, CMPX, ANION #### [address] [address] Albumin [Mass/Vol] 4.8 g/dL Normal 3.4-4.9 [facility] Comment on above: Performed By: #### C BCWD, CK, OSMOL, EGFR1, CMPX, ANION #### [address] [address] ALP [Catalytic activity/Vol] 94 U/L Normal 40-129 [facility] Comment on above: Performed By: #### C BCWD, CK, OSMOL, EGFR1, CMPX, ANION #### [address] [address] ALT [Catalytic activity/Vol] 59 U/L High 10-50 [facility] Comment on above: Performed By: #### C BCWD, CK, OSMOL, EGFR1, CMPX, ANION #### [address] [address] AST [Catalytic activity/Vol] 39 U/L Normal 10-50 [facility] Comment on above: Performed By: #### C BCWD, CK, OSMOL, EGFR1, CMPX, ANION #### [address] [address] Bilirubin [Mass/Vol] 1.0 mg/dL Normal 0.3-1.2 [facility] Comment on above: Performed By: #### C BCWD, CK, OSMOL, EGFR1, CMPX, ANION #### [address] [address] POTASSIUM WITH REFLEX MG 4.2 meq/L Normal 3.5-5.2 [facility] Comment on above: Result Comment: Low level specimen hemolysis is present as indicated by the interference index on the Elsy analyzer. ??The reported K+ level may be falsely increased. If clinically warranted, recollection of the specimen is suggested. Performed By: #### C BCWD, CK, OSMOL, EGFR1, CMPX, ANION #### [address] [address] Comprehensive metabolic 2000 panelon 06-04-2025 Albumin BCG dye [Mass/Vol] 4.8 g/dL 3.4 - 4.9 g/dL [facility] ALP [Catalytic activity/Vol] 94 U/L 40 - 129 U/L [facility] ALT No additional P-5'-P [Catalytic activity/Vol] 59 U/L High 10 - 50 U/L [facility] Comment on above: Performed at [facility] [address] [place] [address] AST [Catalytic activity/Vol] 39 U/L 10 - 50 U/L [facility] Bilirubin [Mass/Vol] 1.0 mg/dL 0.3 - 1 .2 mg/dL [facility] Calcium [Mass/Vol] 10.1 mg/dL 8.5 - 10. 5 mg/dL [facility] CO2 [Moles/Vol] 23 mmol/L 22 - 29 meq/L [facility] Creatinine [Mass/Vol] 1.5 mg/dL High 0.7 - 1.2 mg/dL [facility] Glucose [Mass/Vol] 121 mg/dL High 74 - 109 mg/dL [facility] Potassium [Moles/Vol] 4.2 mmol/L 3.5 - 5.2 meq/L [facility] Comment on above: Low level specimen h emolysis is present as indicated by the interference index on the Elsy analyzer. The reported K+ level may be falsely increased. If clinically warranted, recollection of the specimen is suggested. Protein [Mass/Vol] 7.2 g/dL 6.4 - 8.3 g/dL [facility] Urea nitrogen [Mass/Vol] 23 mg/dL 8 - 23 mg/dL [facility] EKG 12-LEADon 06-04-2025 EKG 12-LEAD 83 83 174 86 344 404 44 58 48 Normal sinus rhythm Normal ECG No previous ECGs available Confirmed by DAMIAN SMITH MD ([id number]) on 06/04/2025 9:01:04 PM [email or web address]&Date= 04-06-2025&Time=19%3a15 %3a22%3a00&TestType=ECG &Site=3&OutputType=PDF& Ext=PDF Normal [facility] EKG EmergencyOrdered By: Martin Smith on 06-04-2025 Atrial Rate 83 BPM [facility] Work Phone: P Hampton 44 degrees [facility] Work Phone: P-R Interval 174 ms [employer] Work Phone: Q-T Interval 344 ms [employer] Work Phone: QRS Duration 86 ms [facility] [employer] Work Phone: QTc Calculation (Bazett) 404 ms [employer] Work Phone: R Hampton 58 degrees [employer] Work Phone: T [place] 48 degrees [employer] Work Phone: Ventricular Rate 83 BPM [employer] Work Phone: Richard [employer] Work Phone: EKG Emergencyon 06-04-2025 Normal sinus rhythm Normal ECG No previous ECGs available Confirmed by DAMIAN SMITH MD ([id number]) on 06/04/2025 9:01:04 PM WCND STR MUSE Damian Smith MD - 06/04/2025 Normal sinus rhythm Normal ECG No previous ECGs available Confirmed by DAMIAN SMITH MD ([id number]) on 06/04/2025 9:01:04 PM [employer] GFR, ESTIMATEDon 06-04-2025 GFR/1.73 sq M.predicted MDRD (S/P/Bld) [Vol rate/Area] 67 mL/min/{1.73_m2} Normal >60 [employer] Comment on above: Pediatric calculator link https://www.kidney.org/professionals/kdoqi/gfr_calculatorped [...] that affects renal tubular secretion. Performed at [facility] [address] [place] [address] Result Comment: Pedi atric calculator link [email or web address]://www.kidney.org/professionals/kdoqi/gfr_calculatorped [...] BCWD, CK, OSMOL, EGFR1, CMPX, ANION #### [facility] [employer] [address] [place] [address] No Panel Informationon 06-04 Interpretation and review of laboratory results Abnormal [facility] Osmolalityon 06-04-2025 Osmolality Calc [Osmolality] 273.2 Low [facility] Comment on above: Performed at [facility] [address] [place] [address] FERRITINon 06-21-2024 Ferritin [Mass/Vol] 517 ng/mL High 22-322 [facility] Comment on above: Performed By: #### C BCWD, CK, OSMOL, EGFR1, CMPX, ANION #### [place] [address] IRON AND TIBCon 06-21-2024 Iron [Mass/Vol] 92 ug/dL Normal 65-195 [facility] Comment on above: Performed By: #### T RIK NEWSOME FEIBC #### [place] [address] IRON BINDING CAPACITY 206 ug/dL Normal 171-450 [facility] Comment on above: Performed By: #### T RIK NEWSOME FEIBC #### [place] [id number] TSH W/ REFLEX FT4on 06-21-20 24 TSH THIRD GENERATION 2.420 uIU/mL Normal 0.400-4.200 [facility] Comment on above: Performed By: #### C BCWD, CK, OSMOL, EGFR1, CMPX, ANION #### [employer] [address] [place] [address] Office Visit Reporton 2023 Office Visit Report [facility] [address] [place] [address] OFFICE VISIT Date of Service: 02/20/24 MR#: [id number] Acct: [id number] Patient: MICHEL GUERRIER Rep #: [id number] 22 : 2005 Provider: BONIFACIO Valdez Age/Sex: 19/M Location[facility] Status: Signed Intake Vital Signs 05/14/21 19:17 Height 6 ft 2 in Intake Visit Reasons: PE NON DOT DRUG SCREEN/ GENRAL RENT-ALL Allergies No Known Allergies Allergy (Verified 05/14/21 19:17) Office Procedures [facility] Billing Sheet Testing Breath Alcohol Test in ED (piped buttonhole machine operator fee charged): No Breath Alcohol in [facility]: No Breath Alcohol Test Pre-Employment: No Chest X-Ray (interpreted by radiologist): No DOT Drug Screen: No DOT Physical Exam: No DOT Pre-Employment Breath Alcohol: No DOT Pre-Employment Drug Screen: No DOT Reasonable Suspicion: No Drug Screen Collection Only: No Drug Test Performed by another entity: No ECG: No ED consulting senior practice director Fee: No Employer Ordered Physical: No Flu [...] No Post-Accident DOT Drug Screen (in ED piped buttonhole machine operator fee charged): No Post-Accident DOT Drug Screen in [facility]: No Post-Accident Non-DOT Breath Alcohol Test: No Post-Accident NON-DOT Drug Screen (piped buttonhole machine operator fee charged in ED): No Post-Accident NON-DOT Drug Screen in ED (piped buttonhole machine operator fee charged): No Post-Accident NON-DOT Drug Screen in [facility]: No Pre-Employment Drug Screen [facility]: No Pre-Employment Drug Screen: Yes Pre-Employment PE: No [employer] DOT (yearly plus drug testing fee): No [employer] Non-DOT (yearly plus drug testing fee): No Respirator Clearance (form only): No Respirator Fit Testing: No RSV/Flu Lnida: No Saliva Drug Screen: No Second Drug Screen: No Strep Linda: No TB Test: No Tdap (over age 7): No Titmus Screening: No Vision Test: No Stress Test (conducted interpreted by a golf tournament consultant): No Occquant-Quantiferon: No 05/25/24 1604 A> Date Kelly Kathleen Signature: Date (if applicable) CC: Normal [facility] Hemoglobin S Solubility test Ql (Bld)Ordered By: Bay Estrada on 05-05-2023 Hemoglobin S Ql (Bld) Negative Negative [facility] Comment on above: Since a variety of c onditions and other abnormalhemoglobins in addition to Hemoglobin S may give false-positive results, positive Hemoglobin Solubility testsshould be confirmed by hemoglobin fractionation testing.Performed at: [address] [id number] Director: Alec Sanchez PhD, Phone: [phone] Vital Signs Date Time Vital Sign Value Performing Clinician Noy fonseca 06-04-2025 22:00-0400 Diastolic blood pressure 76 mm[Hg] Maria Eugenia Reveles DO Work Phone: [facility] [employer] 06-04-2025 22:00-0400 Heart rate 71 /min Maria Eugenia Reveles DO Work Phone: [facility] [employer] [facility] 06-04-2025 22:00-0400 Respiratory rate 10 /min Maria Eugenia Reveles DO Work Phone: [facility] 06-04-2025 22:00-0400 SaO2% (BldA) [Mass fraction] 99 % Maria Eugenia Reveles DO Work Phone: [employer] 06-04-2025 22:00-0400 Systolic blood pressure 145 mm[Hg] Maria Eugenia Reveles DO Work Phone: [employer] 06-04-2025 19:56-0400 Body temperature 98.49 [degF] Maria Eugenia Reveles DO Work Phone: [employer] 06-04-2025 19:13-0400 Body height 188 cm Maria Eugenia Reveles DO Work Phone: [facility] [employer] 06-04-2025 19:13-0400 Body mass index (BMI) [Ratio] 36.59 kg/m2 Maria Eugenia Reveles DO Work Phone: [employer] 06-04-2025 19:13-0400 Body weight 129.28 kg Maria Eugenia Reveles DO Work Phone: [facility] [employer] Encounters Encounter Date Encounter Type Care Provider Facility Start: 06-08-2025 End: 06-08-2025 ambulatory NONE NONE [facility] Start: 06-04-2025 End: 06-04-2025 Emergency department patient visit Maria Eugenia Reveles DO Work Phone: [facility] Comment on above: Heat exhaustion, ini tial encounter (Primary Dx); Dehydration; Elevated serum creatinine Start: 06-21-2024 End: 06-21-2024 ambulatory NONE NONE [facility] Start: 02-20-2024 End: 02-20-2024 ambulatory Kelly VALDOVINOS [place] Start: 05-05-2023 End: 05-05-2023 ambulatory [facility] Work Phone: Start: 05-05-2023 End: 05-05-2023 Patient encounter procedure [facility] Work Phone: Start: 06-28-2022 End: 06-28-2022 ambulatory [facility] Work Phone: Start: 06-28-2022 End: 06-28-2022 Patient encounter procedure [facility] Procedures Date Procedure Procedure Detail Performing Clinician [...] DTaP/Tdap/Td vaccine (7 - Td or Tdap) [facility] Start: 05-05-2025 Influenza vaccination Flu vaccine (#1) [facility] Start: 06-05-2024 COVID-19 Vaccine ( season) COVID-19 Vaccine ( season) [facility] Start: 2022 Hepatitis C screening Hepatitis C screen [facility] Start: 2020 Meningococcal B vaccine (1 of 2 - Standard) Meningococcal B vaccine (1 of 2 - Standard) [facility] Start: 2019 HIV screening HIV screen [facility] Start: 2019 HPV vaccine (1 - Male 3-dose series) HPV vaccine (1 - Male 3-dose series) [facility] Start: 2017 Varicella vaccine (1 of 2 - 13+ 2-dose series) Varicella vaccine (1 of 2 - 13+ 2-dose series) [facility] Start: 2016 Depression Screen Depression Screen [facility] Payers Date Payer Category Payer Unknown [id number] 2024 Unknown [id number] 2024 Self-pay [id number] 2004 Unknown [id number] 2004 Unknown [id number] Unknown [employer] [id number] Unknown [employer] 0 [id number] Unknown [facility] PACKAGE PLAN . [id number] Unknown [id number] Social History Date Type Detail Facility [facility]: [facility] Start: 11-12-2020 None [facility] Start: 11-12-2020 With Family [facility] Start: 2004 Sex Assigned At Male W [facility] Start: 06-04-2025 Tobacco smoking stat [facility] Never smoked tobacco [facility] Start: 06-04-2025 Tobacco use and exposure Smokeless tobacco non-user [facility] Start: 06-04-2025 Alcoholic beverage intake Ex-drinker (finding) [facility] Start: 06-04-2025 History of Social function [facility] Start: 06-04-2025 Tobacco use panel [facility] Start: 06-17-2024 Sex Male (finding) [facility] Start: 06-21-2024 Gender identity Identifies as male gender (finding) [facility] Hospital Discharge instructions 06-04-2025 Discharge InstructionsAttachments [...] cannot be sent through Care Everywhere.Oral Rehydration (Lebanese)Heat Exhaustion (Lebanese)documented in this encounter [facility] Evaluation note Note Date & Type Note Facility Evaluation note No assessment information availa [facility] Work Phone: Evaluation note Note Date & Type Note Facility Evaluation note Diagnosis Heat exhaustion, initial encounter- Primary Dehydration Elevated serum creatinine Other nonspecific findings on examination of blood documented in this encounter [facility] Chief Complaint and Reason for Visit [...] Care Provider, Attending Provider, Referring Provider Active Angle Furnaceman Relationship Specialty Start Date End Date None, None PCP - General 06/21/24 (unrecognized sect ion and content) No Status Records FoundNo Status Records Found INFORMATION SOURCE (unrecogn ized section and content) DATE CREATED AUTHOR 05/27/2024 [facility] DATE CREATED AUTHOR AUTHOR'S ORGANIZ ATION 06/10/2025 [facility] Reason for Visit (unrecogniz ed section [...] BE BASED ON THE PRIMARY CLINICAL RECORDS. [facility]. provides no warranty or guarantee of the accuracy or completeness of information in this document.
[2025-09-26] MEDS: Lactated Ringers 1,000 ML 15 ML IV (07:55)
--- NOTE | 2025-09-26 08:08 | PCM.PRE.AN2 ---
ASA Classification* ASA Classification ASA Classification: 1 Assessment & Plan Anesthesia* Anesthesia Assessment Anesthesia Assessment: Discussed sedation and/or anesthesia options, risks, benefits, and alternatives with patient/parents/legal guardian/POA. Questions invited. The patient/parents/legal guardian/POA seems to understand and agrees to proceed with anesthesia plan. Reviewed the physical assessment, medical history, allergy history and patient home medications list prior to surgery/procedure/anesthetic and documented any changes. Performed airway and anesthesia risk assessments. Anesthesia Type Anesthesia Type: MAC History Source History Obtained from:: Patient and Chart Anesthesia Focused Assessment* Temperature: 98.1 F Pulse Rate: 81 Blood Pressure: 154/90 Respiratory Rate: 18 Pulse Ox: 99 Oxygen Delivery Method: Room Air Airway Assessment Mouth opens: >3 cm Mallampati Score: III Teeth Condition: Intact Neck Range of motion (ROM): Full ROM Labs Anesthesia Preop lab: CBC WBC, (4.5-13.0) 7.3 K/mm3 05/15/21, 12:39 RBC, (4.5-5.1) 5.06 M/mm3 05/15/21, 12:39 Hgb, (13.0-16.5) 15.2 g/dL 05/15/21, 12:39 Hct, (36-47) 44.5 % 05/15/21, 12:39 Plt Count, (150-450) 218 K/mm3 05/15/21, 12:39 CHEMISTRY Potassium, (3.5-5.1) 4.1 mmol/L 05/17/21, 10:00 Sodium, (136-145) 137 mmol/L 05/17/21, 10:00 BUN, (7-18) 17 mg/dL 05/17/21, 10:00 Creatinine, (0.70-1.30) 0.97 mg/dL 05/17/21, 10:00 Glucose, (74-106) 91 mg/dL 05/17/21, 10:00 COAG Pre-Assessment Diagnosis/Proposed Procedure Planned Operative Procedure(s): PERCUTANEOUS FIXATION 5TH METATARSAL RIGHT FOOT Anesthesia History 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 When Was Last Pacemaker Check QUESTION #4 FULL TEXT: You/Your Family Experience fever (hyperthermia) with Anesthesia Last Oral Intake Last Oral intake: Last Oral Intake NPO since 20:00 09/26/25 07:51 Meds taken in AM with sips of No 09/26/25 07:51 water? Meds patient instructed to take am of surgery PONV PONV - bag machine operator helper: PONV - bag machine operator helper Female No 09/19/25 13:04 HX of Motion Sickness No 09/19/25 13:04 HX of N/V After Surgery No 09/19/25 13:04 Non-Smoker Yes 09/19/25 13:04 Duration of Surgery greater No 09/19/25 13:04 than 60 minutes Number of Risk Factors 1 09/19/25 13:04 PONV Score Low Risk 09/19/25 13:04 Height & Weight Height & Weight: Anesthesia: Height & Weight Height 6 ft 2 in 09/26/25 07:51 Weight: 125.6 kg 09/26/25 07:51 Body Mass Index (BMI) 35.5 09/26/25 07:51 Respiratory Assessment Respiratory Assessment - bag machine operator helper: Respiratory Tract Infection Hx - bag machine operator helper Hx Respiratory Tract Infection No 09/19/25 13:04 STOP Sleep Apnea STOP Sleep Apnea - bag machine operator helper: STOP Sleep Apnea - bag machine operator helper Hx Hypertension No 09/19/25 13:04 Hx Sleep Apnea No 09/19/25 13:04 CPAP BIPAP Do you snore loudly (louder No 09/19/25 13:04 than talking or can be heard Do you often feel tired/ No 09/19/25 13:04 fatigued/ sleepy during daytime? Has anyone observed you stop No 09/19/25 13:04 breathing during sleep? STOP Results Negative 09/19/25 13:04 QUESTION #5 FULL TEXT : Do you snore loudly (louder than talking or can be heard through closed doors)? 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 Specify any problems Hx of Preganancy in last 3 N/A 09/19/25 13:04 Months Nurse Filling Out Transfusion [email or web address] 09/19/25 13:04 & Questions: Date: 09/19/25 09/19/25 13:04 Time: 13:06 09/19/25 13:04 Patient unable to answer at this time (ie. confused, unrespo /Reproduction History /Reproductive History - bag machine operator helper: /Reproductive Hx- bag machine operator helper Hx Now Gestational Age (in weeks): EDC: Hx Hx Para Hx Section SAB Does the father of the baby or his family experience fever w Father of the baby Malignant Hypertension history comment Active Medications Active Medications: Current Medications Generic Name Dose Route Start Last Admin Trade Name Freq PRN Reason Stop Dose Admin Lactated Ringer's 1,000 mls @ 15 mls/hr 09/26/25 07:30 09/26/25 07:55 IV 15 mls/hr .Q48H ZEINAB Administration PFSH Medical History Wears contact lenses Alcohol use Non-smoker Ankle injuries Home Medications ?Medication ?Instructions ?Recorded ?Last Taken ?Type NK 11/30/17 Unknown History Allergy/AdvReac Type Severity Reaction Status Date / Time No Known Allergies Allergy Verified 09/26/25 07:50 Family History Other Asthma Diabetes Surgical History H/O wisdom tooth extraction Social History Smoking Status: Never smoker alcohol intake: never Review of Systems (Anesthesia) ROS Narrative System reviewed and no additional complaints, except as documented.
--- NOTE | 2025-09-26 08:33 | OP.PCM_ITS ---
Operative Report (Standard) Operative Information Date of Procedure: 09/26/25 Pre-Operative Diagnosis: Carpentre fracture 5th metatarsal right foot Post-Operative Diagnosis: same Surgery/Procedure Performed: percutaneous fixation right foot 5th metatarsal rehab nursing tech: No Type of Anesthesia: Local MAC RN Documented Start/Stop Times: Operation Date: 09/26/25 09:00 Case Time Into Pre-Op 09/26/25 07:26 Procedure Start Time: 09:00 Procedure Stop Time: 10:04 Select all DRAINS/GRAFTS/IMPLANTS that apply: Implanted device Implanted device details: 2 kire wires Estimated Blood Loss: 5ml Specimen collected: No Description of surgery: supine position. IV sedation. 20ml dileep 0.25% with epi [id number] injected. no tourniquet. guide wire used outside of the skin to orient placement of the percutaneous pin. the orientation was confirmed in the lateral and AP view. the small incision was made proximal to the styloid and the pin was located with the c arm and note to start of the tip of the styloid. It was driven in but he has an enormous peroneal tubercle that kept the pin from tracking proximally and repeated attempts only made the orientation worse. Several different technigues were employed with hand driving the pin, a parallel pin, overdrilling proximally to create wiggle room, but the tubercle was so large it was impossible to orient the pin perfectly down the shaft in all planes. 2 pins were driven across the fracture site but exited before enough thread of a screw would purchase. so the pins were left intact as solid fixation. they were bent and cut with pin caps applied. suture was used to repair the skin. DSD and posterior splint. Surgical Findings: mini c arm confirms Carpenter fracture right foot Complications Complications: Yes Complication Details: planned percutaneous screw failed, implemented percutaneous 2 pin fixation
[2025-09-26] MEDS: Cefazolin 1 GM/5 ML Vial 3 GM IV (08:41)
[2025-09-26] MEDS: Lactated Ringers 1,000 ML 1000 ML IV (08:41)
[2025-09-26] MEDS: Midazolam 2 MG/2 ML Syringe IV (08:43)
[2025-09-26] MEDS: Lidocaine 1% (5 ml sdv) 5 ML Vial IV (08:45)
[2025-09-26] MEDS: fentaNYL 100 MCG/2 ML Ampul IV (08:47)
[2025-09-26] MEDS: Bupiv/Epi 0.25% 30 ML Vial (08:55)
--- NOTE | 2025-09-26 10:13 | PCM.POST.ANE ---
Anesthesia: Postop Eval I Current Vital Signs Temperature: 98 F Pulse Rate: 70 Blood Pressure: 141/61 Respiratory Rate: 14 Pulse Ox: 98 Oxygen Delivery Method: Room Air Assessment Airway patent: Yes Spontaneous unlabored respirations: Yes Mental status: Awake and Calm nausea: No Vomiting: No Anesthesia Complication: No Fluid Hydration Crystalloid volume administer (ml): 800 Total IV fluid infused: 800 Progress Note Anesthesia document: Postop Eval 1 completed: Yes
--- NOTE | 2025-09-26 13:02 | POSTOPAN2_ITS ---
Anesthesia Postop Eval I Sum Postop Eval Completion status Anesthesia document: Postop Eval 1 completed: Yes Anesthesia Postop Eval I Summary Anesthesia Postop Eval I Summary: Anesthesia Postop Eval I: Assessment Summary Airway patent Yes 09/26/25 10:13 FLUE GAS ANALYST.[email or web address] Spontaneous unlabored Yes 09/26/25 10:13 FLUE GAS ANALYST.JBLOU respirations Mental status Awake,Calm 09/26/25 10:13 FLUE GAS ANALYST.JBLOU nausea No 09/26/25 10:13 FLUE GAS ANALYST.JBLOU Vomiting No 09/26/25 10:13 FLUE GAS ANALYST.JBLOU Anesthesia Postop Eval I: Fluid Summary Crystalloid volume administer 800 09/26/25 10:13 FLUE GAS ANALYST.JBLOU (ml) Colloids volume administered ( ml) Blood Product volume administered (ml) Total IV fluid infused 800 09/26/25 10:13 FLUE GAS ANALYST.JBLOU Anesthesia Postop Eval I: Summary Notes Anesthesia Complication No 09/26/25 10:13 FLUE GAS ANALYST.JBLOU Anesthesia Complication Comment: Post-operative progress note Anesthesia: Postop Eval II Evaluation Mental status: Awake and Calm Pain Level: 2 nausea: No Vomiting: No Complications Anesthesia Complication: No
--- NOTE | 2025-09-26 13:02 | PCM.POSTANE2 ---
Anesthesia Postop Eval I Sum Postop Eval Completion status Anesthesia document: Postop Eval 1 completed: Yes Anesthesia Postop Eval I Summary Anesthesia Postop Eval I Summary: Anesthesia Postop Eval I: Assessment Summary Airway patent Yes 09/26/25 10:13 BOTTLE [email or web address] Spontaneous unlabored Yes 09/26/25 10:13 BOTTLE [email or web address] respirations Mental status Awake,Calm 09/26/25 10:13 BOTTLE [email or web address] nausea No 09/26/25 10:13 BOTTLE [email or web address] Vomiting No 09/26/25 10:13 BOTTLE [email or web address] Anesthesia Postop Eval I: Fluid Summary Crystalloid volume administer 800 09/26/25 10:13 [email or web address] (ml) Colloids volume administered ( ml) Blood Product volume administered (ml) Total IV fluid infused 800 09/26/25 10:13 BOTTLE [email or web address] Anesthesia Postop Eval I: Summary Notes Anesthesia Complication No 09/26/25 10:13 BOTTLE [email or web address] Anesthesia Complication Comment: Post-operative progress note Anesthesia: Postop Eval II Evaluation Mental status: Awake and Calm Pain Level: 2 nausea: No Vomiting: No Complications Anesthesia Complication: No
== END 2025-09-26 11:14 | disposition home or self-care (01) ==
LOC: SDC 07:33 → AC 08:01
PROVIDERS: PCP Family Medicine; Referring Provider Podiatrist Foot & Ankle Surgery; Visit Provider Podiatrist Foot & Ankle Surgery
PROC: (CPT 28476; principal; 2025-09-26 08:45)
DX: S92.351A Displaced fracture of fifth metatarsal bone, right foot, initial encounter for closed fracture (principal); X58.XXXA Exposure to other specified factors, initial encounter
CPT/HCPCS: 28476; 01462; 73620; 76000; C1713; J2405